=== PATIENT | male | born 1970 ===

== ENCOUNTER 2023-05-04 05:49 | Outpatient (CLI) | payer MEDICAID ==
[~2023-05-04] VITALS: Ht 167.6 cm; Wt 80.2 kg
[2023-05-11] MEDS ORDERED: ATOR10TA66 PO (11:31)
== END 2023-05-11 11:42 | disposition home or self-care (01) ==
LOC: PREOP 05:49
PROVIDERS: ATTEND Surgery
DX: Z01.818 Encounter for other preprocedural examination (principal)